=== PATIENT | male | born 1975 | race African-American/Black ===

== ENCOUNTER 2016-12-16 08:45 | Emergency (ER) | payer SELFPAY ==
--- NOTE | 2016-12-16 09:41 | ER Document Report ---
ED Flu Like - General Time seen by provider: 09:30 Mode of Arrival: Ambulatory Information source: Patient TRAVEL OUTSIDE OF THE [place] IN LAST 30 DAYS: No - HPI Onset: Other - see HPI note Timing/Duration: Persistent Associated symptoms: Body/muscle aches, Chest pain, Nonproductive cough, Diarrhea, Fever Similar symptoms previously: No Recently seen / treated by doctor: No - General Chief Complaint: Flu Symptoms Stated Complaint: FLU LIKE SYMPTOMS Notes: Patient is a 41 year old male presenting to the ED for flu like symptoms. Patient states his symptoms started . Patient complains of a cough, fever (102 F) diarrhea, and body aches. Patient states his body aches were mostly the first 2 days and he mostly has the cough and fever now. Patient also has some rib pain from his cough. Patient is a smoker and has no known allergies. Patient does not have a PCP currently. Patient also has a strange lesion to his left lower extremity but denies any pain or irritation. (IVORY ALMEIDA) - Related Data Allergies/Adverse Reactions: No Known Allergies Allergy (Verified 12/16/16 08:53) Past Medical History - General Information source: Patient - Social History Smoking Status: Current Every Day Smoker Chew tobacco use (# tins/day): No Frequency of alcohol use: Rare Drug Abuse: None Family History: None Patient has suicidal ideation: No Patient has homicidal ideation: No - Past Medical History Cardiac Medical History: Reports: Hx Hypertension Musculoskeltal Medical History: Denies Hx Arthritis - Immunizations Hx Diphtheria, Pertussis, Tetanus Vaccination: Yes Review of Systems - Review of Systems Constitutional: See HPI, Fever EENT: No symptoms reported Cardiovascular: See HPI, Chest pain Respiratory: See HPI, Cough Gastrointestinal: See HPI, Diarrhea Genitourinary: No symptoms reported Male Genitourinary: No symptoms reported Musculoskeletal: See HPI Skin: No symptoms reported Hematologic/Lymphatic: No symptoms reported Neurological/Psychological: No symptoms reported -: Yes All other systems reviewed and negative Physical Exam - Vital signs Interpretation: Normal - General General appearance: Appears well, Alert In distress: Mild - HEENT Head: Normocephalic, Atraumatic Eyes: Normal Pupils: PERRL Mucous membranes: Moist - Respiratory Respiratory status: No respiratory distress Chest status: Nontender Breath sounds: Nonproductive cough Chest palpation: Normal - Cardiovascular Rhythm: Regular Heart sounds: Normal auscultation Murmur: No - Abdominal Inspection: Normal Distension: No distension Bowel sounds: Normal Tenderness: Nontender Organomegaly: No organomegaly - Back Back: Normal, Nontender - Extremities General upper extremity: Normal inspection, Normal ROM, Normal strength General lower extremity: Normal inspection, Normal ROM, Normal strength - Neurological Neuro grossly intact: Yes Cognition: Normal Orientation: AAOx4 Traci Coma Scale Eye Opening: Spontaneous [place] Coma Scale Verbal: Oriented [place] Coma Scale Motor: Obeys Commands [place] Coma Scale Total: 15 Speech: Normal - Psychological Associated symptoms: Normal affect, Normal mood - Skin Skin Temperature: Warm Skin Moisture: Dry Skin irregularity: Lesion - circular lesion to the left lower extremity, no erythema, no edema, no tenderness, not hot to touch Course - Re-evaluation Re-evalutation: 12/16/16 11:12 I personally performed the services described in the documentation, reviewed and edited the documentation which was dictated to my scribe in my presence, and it accurately records my words and actions. he presents emergency Department with a 2 to three-day history of fever or chills cough bodyaches. 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 Says he took some at home for the fever which did help a little bit. Has no primary care physician no underlying medical problems or medications that he reports. He is ill but nontoxic appearing coughing on examination with clear lungs no nuchal rigidity. He is positive for influenza chest x-ray is negative for pneumonia. Long discussion with the patient he is 48 hours from onset of symptoms so the Tamiflu is not indicated in addition to the fact that it cost over $100 and he pays lund for his prescriptions he understands this is been given a work excuse for 4 days supportive care and given the clinic for follow-up provider and discussed reasons Fredia return sooner (MAYRA BALDERAS) - Vital Signs Vital signs: Temp Pulse Resp BP Pulse Ox 99.2 F 95 20 129/90 H 98 12/16/16 11:32 12/16/16 11:32 12/16/16 11:32 12/16/16 11:32 12/16/16 11:32 Discharge - Discharge Clinical Impression: Influenza Condition: Stable Disposition: HOME, SELF-CARE Additional Instructions: Influenza What are conditions that should receive medical attention? The development of difficulty breathing. Lip color changes to blue or purple. Persistent vomiting and unable to keep liquids down with signs of dehydration such as: dizziness when standing, unable to urinate, or if child/infant is crying no tears are noticed. Is less responsive than normal or becomes confused. How do I decrease the spread of flu in my home? Taking care of the sick patient at home: Keep the sick person in a room separate from the common areas of the house. Keep the "sickroom" door closed. If the person with the flu needs to leave the home, they should cover their nose/mouth when coughing or sneezing and wear a disposable (surgical) mask if available. These masks may be available at your local pharmacy, medical supply and hardware store. If the sick person is in common areas of the house, have them wear a surgical mask. If possible, have the sick person use a separate bathroom that should be cleaned daily with a household disinfectant. If you are the caregiver: Avoid being face to face with the sick adult person as much as possible. Try to stay at least 6 feet away and wear a disposable surgical mask when possible. When holding small children who are sick, place their chin on your shoulder so that they will not cough in your face. Wash your hands after you touch the sick person or handle their tissues and laundry. Wear a mask if you leave home, as you may be infected from taking care of someone and not know it yet. Watch yourself and others in the home for flu symptoms and contact your doctor if symptoms occur. NOTE: Antiviral medication used to reduce the symptoms of the flu works only if taken within 48 hours, and best within 24 hours of symptom onset. Household Cleaning, laundry and waste disposal: Tissues and other disposable items used by the sick person should be thrown away in the trash. Wash your hands after touching these used items. No special waste disposal is required. Keep surfaces (especially bedside tables, bathroom surfaces, and toys for children) clean by wiping them down with a safe household disinfectant according to the directions on the product label. Per CDC advice, most people will not receive testing to confirm flu. Also based on the person's health history and onset of symptoms, not all patients will receive prescriptions for antiviral medications. If you have questions related to this, please ask your healthcare provider. For more information, you can call the Centers for Disease Control and Prevention (CDC) Hotline at 5-601-SDK-INFO This line is available in Nauruan and Mongolian, 24 hours a day, 7 days a week. Or www.[employer] or www.cdc.gov Flu-Like Illness Home Instructions: The influenza virus infection can cause a wide rage of symptoms, including: Fever, cough, sore throat, body aches, headaches, chills, fatigue, with some patients reporting diarrhea and vomiting Like seasonal influenza A, H1N1 ("swine flu")in humans can vary in severity from mild to severe Severe illness with pneumonia, respiratory failure and even is possible Certain groups might be more likely to develop a severe illness from H1N1 infection. Sometimes bacterial infections may occur at the same time as or after infection with influenza viruses and lead to pneumonias, ear infections, or sinus infections. How Flu Spreads The main way that influenza viruses spread is through respiratory droplets of coughs and sneezes. This can happen when someone with the infection coughs or sneezes and the particles fly through the air and land on other people and surfaces. If the person covers their mouth and nose with their hand but does not wash their hands immediately, then these germs are passed onto the next object that they touch. People with Influenza A or suspected H1N1 (swine flu) who are cared for at home should: Check with their doctor about any special care that they might need if they are or have a health condition such as diabetes, heart disease, asthma or emphysema. Also, limit caregiver to one (if possible). women or those with chronic health conditions should not take care of the flu patient unless necessary. Check with their doctor about whether or not medications are needed that may lessen the symptoms of the flu. Stay at home until 24 hours fever free without the use of fever reducing medication. Get plenty of rest and avoid other healthy people in your home. Drink plenty of clear liquids to keep from getting dehydrated. Take medications like Tylenol (Acetaminophen), Advil/Motrin/Nuprin ( Ibuprofen) or Aleve (Naproxen) for fevers and aches. All children under the age of 18 years of age should not take aspirin or products containing aspirin (e.g. Pepto Bismol), as this can cause a rare serious illness called Charlie Syndrome. Over the counter medications for flu and colds may help, but it is very important to follow the package directions. Remember that the medicine may help the symptoms, but it will not help prevent others from getting sick if they are around you. Cover coughs and sneezes using your bent arm. Clean hands with soap and water or an alcohol-based hand rub often, especially after using tissues to cough or sneeze. Encourage hand washing frequently for all people living in the home! The sick person should not have visitors other than caregivers. Encourage concerned loved ones to call instead of visit. Avoid close contact with others-do not go to work or school while sick. Forms: Return to Work Referrals: [facility] [Provider Group] - Follow up in 3-5 days (Return to the emergency department sooner for increasing worsening or new symptoms) Scribe Documentation - Scribe Written by Sarah:: Ivory Almeida 12/16/16 13:37 acting as scribe for :: Pramod
[2016-12-16 11:33] VITALS: BP 129/90
== END 2016-12-16 11:34 | disposition home or self-care (01) ==
LOC: ER 08:45
DX: J11.1 Influenza due to unidentified influenza virus with other respiratory manifestations (principal); R05 Cough; R07.81 Pleurodynia; R19.7 Diarrhea, unspecified; R50.9 Fever, unspecified; L98.9 Disorder of the skin and subcutaneous tissue, unspecified; I10 Essential (primary) hypertension; F17.200 Nicotine dependence, unspecified, uncomplicated
CPT/HCPCS: 71020; 87804; 99284

== ENCOUNTER 2018-03-28 05:13 | Emergency (ER) | payer SELFPAY ==
[2018-03-28 05:18] VITALS: BP 147/106
[2018-03-28] MEDS ORDERED: KETOROLAC TROMETHAMINE 60 MG/2 ML SDV IM ONE (05:46)
[2018-03-28] MEDS ORDERED: DEXAMETHASONE SOD PHOS INJ 10 MG/1 ML VIAL IM ONE (05:46)
[2018-03-28] MEDS ORDERED: PENICILLIN G BENZATHINE 1.2 MILLION UNIT/2 ML DISP.SYRIN IM ONE (05:47)
--- NOTE | 2018-03-28 05:52 | ER Document Report ---
ED ENT - General Chief Complaint: Sore Throat Stated Complaint: SORE THROAT Time Seen by Provider: 03/28/18 05:31 Mode of Arrival: Ambulatory Information source: Patient Notes: Patient with complaint of sore throat x2 days. Reports history of strep, states this feels similar. Denies any difficulty swallowing. Denies fever. TRAVEL OUTSIDE OF THE [place] IN LAST 30 DAYS: No - Related Data Allergies/Adverse Reactions: No Known Allergies Allergy (Verified 12/16/16 08:53) Past Medical History - General Information source: Patient - Social History Smoking Status: Never Smoker Chew tobacco use (# tins/day): No Frequency of alcohol use: None Drug Abuse: None Family History: None Patient has suicidal ideation: No Patient has homicidal ideation: No - Past Medical History Cardiac Medical History: Reports: Hx Hypertension Denies: Hx Coronary Artery Disease, Hx Heart Attack Pulmonary Medical History: Denies: Hx Asthma, Hx Bronchitis, Hx COPD, Hx Pneumonia Neurological Medical History: Denies: Hx Cerebrovascular Accident, Hx Seizures Renal/ Medical History: Denies: Hx Peritoneal Dialysis Musculoskeltal Medical History: Denies Hx Arthritis - Immunizations Hx Diphtheria, Pertussis, Tetanus Vaccination: Yes Review of Systems - Review of Systems Constitutional: No symptoms reported EENT: See HPI Cardiovascular: No symptoms reported Respiratory: No symptoms reported Gastrointestinal: No symptoms reported Genitourinary: No symptoms reported Male Genitourinary: No symptoms reported Musculoskeletal: No symptoms reported Skin: No symptoms reported Hematologic/Lymphatic: No symptoms reported Neurological/Psychological: No symptoms reported Physical Exam - Vital signs Vitals: Temp Pulse Resp BP Pulse Ox 99.3 F 85 18 147/106 H 100 03/28/18 05:17 03/28/18 05:17 03/28/18 05:17 03/28/18 05:17 03/28/18 05:17 - Notes Notes: PHYSICAL EXAMINATION: GENERAL: Well-appearing, well-nourished and in no acute distress. HEAD: Atraumatic, normocephalic. EYES: Pupils equal round and reactive to light, extraocular movements intact, sclera anicteric, conjunctiva are normal. ENT: Nares patent, oropharynx erythemous with white exudates, mild tonsilar swelling, uvula midline. Moist mucous membranes. NECK: Normal range of motion, supple without lymphadenopathy LUNGS: Breath sounds clear to auscultation bilaterally and equal. No wheezes rales or rhonchi. HEART: Regular rate and rhythm without murmurs ABDOMEN: Soft, nondistended abdomen. Tenderness to palpation to periumbilical area, as well as right lower quadrant. No guarding, no rebound. No masses appreciated. : Tenderness to palpation to right testicle, soft area of irregularity noted to posterior right testicle consistent with variocele. No swelling noted to either testicle. Musculoskeletal: Normal range of motion, no pitting or edema. No cyanosis. NEUROLOGICAL: Cranial nerves grossly intact. Normal speech, normal gait. Normal sensory, motor exams PSYCH: Normal mood, normal affect. SKIN: Warm, Dry, normal turgor, no rashes or lesions noted. Course - Re-evaluation Re-evalutation: Patient physical examination consistent with strep pharyngitis, mild swelling noted to bilateral tonsils however they are not touching, uvula midline, no evidence of ELECTROTYPER. Patient speaking in complete sentences with no difficulty swallowing. Patient declines rapid strep testing as he reports that he usually tests negative on the rapid strep, Will treat with penicillin, decadron and toradol as patients exam consistent with strep. Patient understand ED return precautions. - Vital Signs Vital signs: Temp Pulse Resp BP Pulse Ox 99.3 F 85 18 147/106 H 100 03/28/18 05:17 03/28/18 05:17 03/28/18 05:17 03/28/18 05:17 03/28/18 05:17 Discharge - Discharge Clinical Impression: Exudative pharyngitis Condition: Stable Disposition: HOME, SELF-CARE Additional Instructions: Strep Throat Your sore throat is due to the streptococcus germ (strep throat). Strep throat usually makes you feel quite ill with fever and aches, headache, swollen sore throat, and tender bumps under the angles of the jaw. Strep throat requires antibiotic treatment. Although the sore throat may go away by itself, complications such as rheumatic fever, kidney disease, or throat abscess can occur. We usually prescribe antibiotics by mouth. Be sure to take the medicine until it's gone. If you stop early, the strep may come back. If you are vomiting, are severely ill, or can't remember to take pills, we can give you an antibiotic shot. Take acetaminophen or ibuprofen for pain and fever. Sip frequent clear liquids, or use popsicles or ice chips. Anesthetic sprays or lozenges may help. Make sure the air in the room is not too dry. Avoid using decongestants or antihistamines. Call the doctor if there is no improvement in three days, or if you have difficulty breathing, increasing throat pain, high fever, rash, or frequent vomiting. He was given a dose of penicillin today as well as a dose of Decadron. There is no need for you to take any other prescriptions. Take ibuprofen as needed for pain. Return to the emergency department if you develop worsening of your sore throat, difficulty breathing or difficulty swallowing. Forms: Return to Work
== END 2018-03-28 06:10 | disposition home or self-care (01) ==
LOC: ER 05:13
DX: J02.9 Acute pharyngitis, unspecified (principal); J35.1 Hypertrophy of tonsils; R10.815 Periumbilic abdominal tenderness; R10.813 Right lower quadrant abdominal tenderness; I10 Essential (primary) hypertension
CPT/HCPCS: 99283; 96372; J1885; J0561; J1100

== ENCOUNTER 2018-06-04 12:57 | Emergency (ER) | payer SELFPAY ==
--- NOTE | 2018-06-04 13:52 | ER Document Report ---
HPI - HPI Pain Level: 4 - CONSTITUTIONAL Constitutional: REPORTS: Fever, Chills - EENT EENT: REPORTS: Sore Throat. DENIES: Ear Pain, Eye problems - NEURO Neurology: DENIES: Headache, Weakness, Vision blurred, Dizzinesss / Vertigo - CARDIOVASCULAR Cardiovascular: DENIES: Chest pain - RESPIRATORY Respiratory: DENIES: Trouble Breathing, Coughing - GASTROINTESTINAL Gastrointestinal: DENIES: Abdominal Pain, Black / Bloody Stools - URINARY Urinary: DENIES: Dysuria, Urgency, Frequency - MUSCULOSKELETAL Musculoskeletal: DENIES: Extremity pain Past Medical History - Social History Smoking Status: Current Every Day Smoker Chew tobacco use (# tins/day): No Frequency of alcohol use: None Drug Abuse: None Family History: None Patient has suicidal ideation: No Patient has homicidal ideation: No - Past Medical History Cardiac Medical History: Reports: Hx Hypertension Denies: Hx Coronary Artery Disease, Hx Heart Attack Pulmonary Medical History: Denies: Hx Asthma, Hx Bronchitis, Hx COPD, Hx Pneumonia Neurological Medical History: Denies: Hx Cerebrovascular Accident, Hx Seizures Renal/ Medical History: Denies: Hx Peritoneal Dialysis Musculoskeletal Medical History: Denies Hx Arthritis - Immunizations Hx Diphtheria, Pertussis, Tetanus Vaccination: Yes Vertical Provider Document - INFECTION CONTROL TRAVEL OUTSIDE OF THE [place] IN LAST 30 DAYS: No Course - Vital Signs Vital signs: Temp Pulse Resp BP Pulse Ox 99.0 F 95 14 149/104 H 100 06/04/18 13:01 06/04/18 13:01 06/04/18 13:01 06/04/18 13:01 06/04/18 13:01
[2018-06-04] MEDS ORDERED: PENICILLIN G BENZATHINE 1.2 MILLION UNIT/2 ML DISP.SYRIN IM ONE (14:10)
[2018-06-04] MEDS ORDERED: KETOROLAC TROMETHAMINE INJ/PF 30 MG/1 ML SDV IM ONE (14:10)
[2018-06-04] MEDS ORDERED: DEXAMETHASONE SOD PHOS INJ 10 MG/1 ML VIAL IM ONE (14:10)
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
[2018-06-04 14:26] VITALS: BP 139/102
== END 2018-06-04 14:39 | disposition home or self-care (01) ==
LOC: ER 12:57
DX: J02.0 Streptococcal pharyngitis (principal); I10 Essential (primary) hypertension; F17.210 Nicotine dependence, cigarettes, uncomplicated
CPT/HCPCS: 99406; 99282; 96372; 87880; J1885; J0561; J1100

== ENCOUNTER 2018-08-17 01:07 | Emergency (ER) | payer SELFPAY ==
[2018-08-17 01:16] VITALS: BP 152/100
--- NOTE | 2018-08-17 01:54 | ER Document Report ---
ED General - General Chief Complaint: Sore Throat Stated Complaint: SORE THROAT Time Seen by Provider: 08/17/18 01:25 Notes: Patient is a 42-year-old male who is presents to the emergency department with a sore throat. He says it hurts to swallow. Started 2 days ago. He also complains of lymph node swelling in his neck. He has not seen his primary care doctor about this issue. His last 2 visits here in the emergency department he had strep throat. He said he did well with the penicillin shot he was given those other 2 times. He said he is felt feverish, but has not checked his temperature. TRAVEL OUTSIDE OF THE [place] IN LAST 30 DAYS: No - Related Data Allergies/Adverse Reactions: No Known Allergies Allergy (Verified 06/04/18 12:58) Past Medical History - Social History Smoking Status: Current Every Day Smoker Frequency of alcohol use: Occasional Drug Abuse: None Family History: None - Past Medical History Cardiac Medical History: Reports: Hx Hypertension Denies: Hx Coronary Artery Disease, Hx Heart Attack Pulmonary Medical History: Denies: Hx Asthma, Hx Bronchitis, Hx COPD, Hx Pneumonia Neurological Medical History: Denies: Hx Cerebrovascular Accident, Hx Seizures Renal/ Medical History: Denies: Hx Peritoneal Dialysis Musculoskeletal Medical History: Denies Hx Arthritis - Immunizations Hx Diphtheria, Pertussis, Tetanus Vaccination: Yes Review of Systems - Review of Systems Notes: REVIEW OF SYSTEMS: CONSTITUTIONAL : Denies recent illness. Denies recent unintentional weight loss. Denies fever, chills, or sweats. EENT: See HPI CARDIOVASCULAR: Denies chest pain. RESPIRATORY: Denies shortness of breath, cough, congestion, difficulty breathing , or wheezing. GASTROINTESTINAL: Denies nausea, vomiting, and diarrhea. Denies abdominal pain. Denies constipation. GENITOURINARY: Denies difficulty urinating, burning, blood in urine, urgency or frequency. MUSCULOSKELETAL: Denies neck and back pain. Denies joint pain or swelling. SKIN: Denies rash, itchiness, or lesions HEMATOLOGIC : Denies easy bruising or bleeding. LYMPHATIC: See HPI NEUROLOGICAL: Denies no numbness or tingling denies weakness. Denies headache. Denies altered mental status. Denies alteration in speech. PSYCHIATRIC: Denies stress, anxiety, alteration in sleep patterns, or depression. All other systems reviewed and negative. Physical Exam - Vital signs Vitals: Temp Pulse Resp BP Pulse Ox 98.7 F 97 18 152/100 H 95 08/17/18 01:14 08/17/18 01:14 08/17/18 01:14 08/17/18 01:14 08/17/18 01:14 - Notes Notes: PHYSICAL EXAMINATION: GENERAL: Appears well, healthy, well-nourished, no acute distress. HEAD: Normocephalic, atraumatic. EYES: PERRL, conjunctiva normal, all extraocular movements intact, sclera nonicteric ENT: Erythema noted to oropharynx and tonsils, tonsillar exudate, moist mucous membranes. NECK: Palpable anterior cervical lymph nodes. Supple, no noticeable swelling, redness, rash. Normal range of motion. LUNGS: Equal breath sounds bilaterally and clear to auscultation. No wheezes rales or rhonchi. CARDIOVASCULAR: S1-S2, regular rate, regular rhythm. Radial pulses 2+, normal. ABDOMEN: Normoactive bowel sounds. Soft, nontender, no guarding, no rebound tenderness, and no masses palpated. EXTREMITIES: Normal strength and range of motion, no pitting or edema. No cyanosis. NEUROLOGICAL: Moves all extremities upon command. Strength 5/5 in all extremities. PSYCH: Normal mood, normal affect. SKIN: Warm, dry. No rash, lesions, ulcerations noted. Normal skin turgor. Course - Re-evaluation Re-evalutation: I do not suspect patient has a peritonsillar abscess or Rey's angina. Rapid strep test is positive. Patient will be treated with penicillin and dexamethasone. I have spoke with the patient about following up with ENT in regards to his multiple diagnoses of strep pharyngitis. Follow-up precautions were given to the patient. He verbalized understanding of his discharge instructions. - Vital Signs Vital signs: Temp Pulse Resp BP Pulse Ox 98.7 F 97 18 152/100 H 95 08/17/18 01:14 08/17/18 01:14 08/17/18 01:14 08/17/18 01:14 08/17/18 01:14 Discharge - Discharge Clinical Impression: Strep pharyngitis Condition: Stable Disposition: HOME, SELF-CARE Additional Instructions: You have been seen in the emergency department for a sore throat. You do have strep throat and have been treated for it here in the emergency department. Since this is your third time having strep throat this year, you need to follow- up with an ear nose and throat doctor. If you develop difficulty breathing, shortness of breath, or have any symptoms that are worrisome to you please return to the emergency department. Referrals: AURORA DYSON DO [ASSOCIATE] - Follow up in 3-5 days
[2018-08-17] MEDS ORDERED: DEXAMETHASONE SOD PHOS INJ 10 MG/1 ML VIAL IM ONE (02:17)
[2018-08-17] MEDS ORDERED: PENICILLIN G BENZATHINE 1.2 MILLION UNIT/2 ML DISP.SYRIN IM ONE (02:18)
== END 2018-08-17 03:23 | disposition home or self-care (01) ==
LOC: ER 01:07
DX: J02.0 Streptococcal pharyngitis (principal); R59.0 Localized enlarged lymph nodes; I10 Essential (primary) hypertension; Z72.0 Tobacco use
CPT/HCPCS: 99283; 96372; 87880; J0561; J1100

== ENCOUNTER 2019-10-30 13:50 | Emergency (ER) | payer OTHER ==
[2019-10-30] MEDS ORDERED: TETRACAINE HCL 0.5% OPH SOLN 4 ML OU ONE (14:12)
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
--- NOTE | 2019-10-30 14:54 | EKG REPORT ---
SEVERITY:- ABNORMAL ECG - SINUS RHYTHM CONSIDER LEFT VENTRICULAR HYPERTROPHY ST ELEV, PROBABLE NORMAL EARLY REPOL PATTERN : Confirmed by: Lauren Mata MD 30-Oct-2019 14:53:01
[2019-10-30 15:09] LABS: ABSOLUTE EOSINOPHILS # (AUTO) 0.1 10^3/uL (0.0-0.6); ABSOLUTE LYMPHOCYTES (AUTO) 2.1 10^3/uL (0.5-4.7); ABSOLUTE MONOCYTES (AUTO) 0.6 10^3/uL (0.1-1.4); ABSOLUTE NEUT (AUTO) 4.7 10^3/uL (1.7-8.2); APPEARANCE,URINE CLEAR; BASOPHILS % (AUTO) 0.7 % (0-2); BILIRUBIN,URINE NEGATIVE (NEGATIVE); COLOR,URINE YELLOW; EOSINOPHILS % (AUTO) 1.9 % (0-6); GLUCOSE, URINE NEGATIVE (NEGATIVE); HEMATOCRIT 43.2 % (37.9-51.0); HEMOGLOBIN 14.5 g/dL (13.5-17.0); KETONES,URINE NEGATIVE (NEGATIVE); LYMPHOCYTES % (AUTO) 27.6 % (13-45); MEAN CORPUSCULAR HEMOGLOBIN 27.5 pg (27.0-33.4); MEAN CORPUSCULAR HGB CONC 33.5 g/dL (32.0-36.0); MEAN CORPUSCULAR VOLUME 82 fl (80-97); MONOCYTES % (AUTO) 7.5 % (3-13); PLATELET COUNT 177 10^3/uL (150-450); PROTEIN,URINE NEGATIVE (NEGATIVE); RED BLOOD COUNT 5.25 10^6/uL (4.35-5.55); RED CELL DISTRIBUTION WIDTH 13.6 % (11.5-14.0); SEGMENTED NEUTROPHILS % (AUTO) 62.3 % (42-78); TOTAL CELLS COUNTED % (AUTO) 100 %; URINE SPECIFIC GRAVITY 1.018; UROBILINOGEN,URINE NEGATIVE mg/dL (<2.0); WHITE BLOOD COUNT 7.5 10^3/uL (4.0-10.5)
[2019-10-30 15:27] LABS: ALKALINE PHOSPHATASE 63 U/L (38-126); ANION GAP 5 (5-19); ASPARTATE AMINO TRANSFERASE 34 U/L (17-59); BILIRUBIN,TOTAL 0.3 mg/dL (0.2-1.3); BLOOD UREA NITROGEN 10 mg/dL (7-20); CARBON DIOXIDE 29 mmol/L (22-30); CHLORIDE 105 mmol/L (98-107); GLUCOSE 81 mg/dL (75-110); POTASSIUM 3.9 mmol/L (3.6-5.0); TOTAL PROTEIN 7.1 g/dL (6.3-8.2)
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
[2019-10-30] MEDS ORDERED: TETRACAINE HCL 0.5% OPH SOLN 4 ML ONE (17:16)
[2019-10-30] MEDS ORDERED: LISINOPRIL 10 MG TABLET PO ONE (18:05)
[2019-10-30 18:19] VITALS: BP 175/125
== END 2019-10-30 18:13 | disposition home or self-care (01) ==
LOC: ER 13:50
DX: S13.4XXA Sprain of ligaments of cervical spine, initial encounter (principal); S05.02XA Injury of conjunctiva and corneal abrasion without foreign body, left eye, initial encounter; R07.9 Chest pain, unspecified; R10.9 Unspecified abdominal pain; V69.40XA Driver of heavy transport vehicle injured in collision with unspecified motor vehicles in traffic accident, initial encounter; Y99.0 Civilian activity done for income or pay; F17.200 Nicotine dependence, unspecified, uncomplicated; I10 Essential (primary) hypertension
CPT/HCPCS: 93005; 99284; 36415; 85025; 85730; 80053; 81001; 84484; 71260; 72125; 74177; 93010; J3490